=== PATIENT | male | born 1950 | race Caucasian/White ===

== ENCOUNTER 2024-12-04 12:46 | Outpatient (OUT) | payer OTHER, SELFPAY ==
--- OUTSIDE RECORDS SUMMARY | 2024-12-04 12:52 | XMS_ITS | Clinical Summary ---
Author Organization [facility] Address [address] [place] [address] Care Team Providers Care Support Associate Name Role Phone Unavailable Primary Care Provider Unavailabl e Allergies No known active allergies Medications allopurinol (Zyloprim) 100 mg tablet Take 200 mg by mouth in the morning. 2 Active amLODIPine (Norvasc) 10 mg tablet Take 10 mg by mouth in the morning and at bedtime. 2 Active atorvastatin (Lipitor) 40 mg tablet Take 40 mg by mouth in the morning. 2 Active benazepril (Lotensin) 20 mg tablet Take 20 mg by mouth in the morning and at bedtime. 2 Active carvedilol (Coreg) 25 mg tablet Take 25 mg by mouth in the morning and at bedtime. 3 Active colchicine 0.6 mg tablet Take by mouth in the morning. 2 Active isosorbide mononitrate ER (Imdur) 60 mg 24 hr tablet Take 120 mg by mouth in the morning and at bedtime. 3 Active pantoprazole (ProtoNix) 40 mg EC tablet Take 40 mg by mouth in the morning. 3 Active spironolactone (Aldactone) 25 mg tablet Take 25 mg by mouth in the morning. 2 Active potassium citrate CR (Urocit-K-10) 10 mEq ER tabletIndication s:Medication management Take 1 tablet (10 mEq) by mouth with breakfast, with lunch, and with evening meal. Do not crush, chew, or split. 1 tablet 3 Active Additional Information Patient taking differently:10 mEq oral2 times daily, Do not crush, chew, or split., Reported on 05/22/2022 sertraline (Zoloft) 50 mg tabletIndication s:Medication management Take 1 tablet (50 mg) by mouth in the morning. 1 tablet Active traZODone (Desyrel) 25 MG split tablet Take 25 mg by mouth at bedtime. Active aspirin 81 mg EC tablet Take 81 mg by mouth in the evening. Active docusate sodium (Colace) 100 mg capsule Take 100 mg by mouth in the morning. Active folic acid/multivit-mi n/lutein (CENTRUM SILVER ORAL) Take by mouth 1 (one) time each day. Active methylcellulose (FIBER THERAPY LAXATIVE ORAL) Take 2 tablets by mouth in the morning. Active famotidine (Pepcid) 40 mg tablet Take 40 mg by mouth in the evening. Active Lactobacillus rhamnosus GG (Culturelle) 15 billion cell capsule, sprinkle capsule Take 1 capsule by mouth in the morning. Active Active Problems Problem Noted Date Diagnosed Date Obesity with body mass index 30 or greater 06/06 Benign prostatic hyperplasia with urinary obstru ction 06/06/2022 Bradycardia 06/06/2022 Left lumbar radiculopathy 06/06/2022 Chronic GERD 06/06/2022 Chronic obstructive pulmonary disease 06/06/2022 Chronic venous insufficiency 06/06/2022 Hypertension 06/06/2022 Idiopathic gout 06/06/2022 On statin therapy 06/06/2022 Mixed dyslipidemia 06/06/2022 Obstructive sleep apnea syndrome 06/06/2022 Overview (06/06/2022): uses cpap uses cpap Uses CPAP nightly Personal history of prostate cancer 06/06/2022 PTSD (post-traumatic stress disorder) 06/06/2022 Radiation cystitis 06/06/2022 Recurrent major depressive disorder, in full rem ission 06/06/2022 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 04/25/2022 Overview (06/06/2022): Added automatically from request for surgery [id number] 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 0 04/25/2022 Overview (04/25/2022): Added automatically from request for surgery [id number] Iliac artery stenosis, bilateral 04/25/2022 Overview (04/25/2022): Added automatically from request for surgery [id number] Encounter for pre-operative examination 04/25/19 Overview (04/25/2022): Added automatically from request for surgery [id number] Social History Tobacco Use Types Packs/Day Years Used Date Smoking Tobacco: Former Cigarettes Q uit: 03/2013 Smokeless Tobacco: Never Tobacco Cessation:Counseling Given: Not Answered Alcohol Use Standard Drinks/Week Comments Not Currently 0 (1 standard drink = 0.6 oz pur e alcohol) Humiliation, Afraid, Rape, and Kick questionnair e Answer Date Recorded Within the last year, have y ou been afraid of your partner or ex-partner? No 06/06/2022 Emotionally Abused Not on file 06/06/2022 Physically Abused Not on file 06/06/2022 Sexually Abused Not on file 06/06/2022 Overall Financial Resource Strain (CARDIA) Answe r Date Recorded How hard is it for you to pa y for the very basics like food, housing, medical care, and heating? Not very hard 06/06/2022 [place] Safety & Environment Answer Date Rec orded Fear of Current or Ex-Partner Not on file Emotionally Abused Not on file 06/10/2023 Physically Abused Not on file 06/10/2023 Sexually Abused Not on file 06/10/2023 Physically or Sexually Abused Not on file Transportation Answer Date Recorded In the past 12 months, has l ack of transportation kept you from medical appointments or from getting medications? No 06/06/2022 Lack of Transportation (Non-Medical) Not on file 06/06/2022 Housing Stability Vital Sign Answer Shahbaz e Recorded Unable to Pay for Housing in the Last Year Not o n file 06/06/2022 Number of Places Lived in the Last Year Not on f ile 06/06/2022 In the last 12 months, was t here a time when you did not have a steady place to sleep or slept in a jail (including now)? No 06/06/2022 Hunger Vital Sign Answer Date Recorded Within the past 12 months, y ou worried that your food would run out before you got the money to buy more. Never true 03/07/20 23 Ran Out of Food in the Last Year Not on file 06/06/2022 Sex and Gender Information Value Date Recorded Sex Assigned at Not on file Legal Sex Male 2:25 PM EST Gender Identity Not on file Sexual Orientation Not on file Last Filed Vital Signs Vital Sign Reading Time Taken Comments Blood Pressure 161/69 06/08/2022 5:05 PM EST Pulse 78 06/08/2022 5:05 PM EST Temperature 36.9 C (98.5 F) 06/08/2022 4:00 PM EST Respiratory Rate 26 06/08/2022 5:05 PM EST Oxygen Saturation 93% 06/08/2022 5:05 PM EST Inhaled Oxygen Concentration - - Weight 93.9 kg (207 lb 0.2 oz) 06/07/2022 2:00 A M EST Height 167.6 cm (5' 6 ) 06/06/2022 8:04 AM EST Body Mass Index 33.41 06/06/2022 8:04 AM EST Plan of Treatment Health Maintenance Due Date Last Done Comments CT Colonography 1949 Colonoscopy 1949 Colorectal Cancer Screening 1949 FIT-DNA 1949 FIT 1949 FOBT 1949 Medicare Annual Wellness (AWV) 1949 Sigmoidoscopy 1949 Depression Screening 1961 Zoster Vaccines (1 of 2) 1999 019, 05/31/2018, 04/02/2010, Additional history exists Fall Risk Screening 2014 Adult Tetanus 05/22/2024 05/22/2014 COVID-19 Vaccine ( season) 2024 01/20/2022, 01/19/2022, 07/15/2021, Additional history exists Influenza Vaccine (#1) 2024 3, 01/16/2022, 12/13/2020, Additional history exists Pneumococcal Vaccine: 50+ Years Completed 04/15/2021, 03/16/2015, 01/31/2015, Additional history exists HIB Vaccines Aged Out No longer eligi ble based on patient's age to complete this topic HPV Vaccines Aged Out No longer eligi ble based on patient's age to complete this topic IPV Vaccines Aged Out No longer eligi ble based on patient's age to complete this topic Meningococcal B Vaccine Aged Out No l onger eligible based on patient's age to complete this topic Meningococcal Vaccine Aged Out No carlos enrique loraine eligible based on patient's age to complete this topic Rotavirus Vaccines Aged Out No longer eligible based on patient's age to complete this topic Medical Devices Implanted Type Area Timber Hand Device Identifier Shelf Expiration Date Model / Serial / Lot Membrane,Maya card,8x14cm - [id number] Implanted:Qty : 1 on 06/06/2022 by Phi Barrett MD at [facility] Collagen N/A: Arterial [employer] [id number] 12/27/2026 [id number] / / [id number]- [id number] Patch,Vascuga rd,[id number] - [id number] Implanted:Qty : 1 on 06/06/2022 by Phi Barrett MD at [facility] Graft N/A: Arterial [employer] 2023 [id number] / / Stent,Viabahn ,Vbx,7fr,8mmx 29mm - [id number] - [id number] Implanted:Qty : 1 on 06/06/2022 by Phi Barrett MD at [facility] Stent N/A: Arterial W L GORE 07/29/2024 [id number] / [id number] / [employer] Vascular And Biliary Stent System Implanted:Qty : 1 on 06/06/2022 by Phi Barrett MD at [facility] Stent N/A: Arterial Other 02/17/2025 [id number] / / [id number] [employer] Vascular And Biliary Stent System Implanted:Qty : 1 on 06/06/2022 by Phi Barrett MD at [facility] Stent N/A: Arterial Other [id number] 01/27/2025 [id number] / / [id number] Insurance [employer] MEDICARE ADVANTAGE Advance Directives Documents on File Type Date Recorded 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
--- OUTSIDE RECORDS SUMMARY | 2024-12-04 12:53 | XMS_ITS | Clinical Summary ---
Author Organization [facility] Address [address] [place] [address] Care Team Providers Care Quality Intern Name Role Phone Latrell Erwin MD Primary Care Provider [phone] Medications carveDILOL 25 MG tablet Take 1 tablet by mouth 2 times daily with meals. Active benazepril 10 MG tablet Take 2 tablets by mouth daily. Active potassium citrate 10 MEQ (1080 MG) Tab CR Take 1 tablet by mouth 2 times daily. Active Isosorbide mononitrate 60 MG Tab SR 24 HR tablet XL Take 2 tablets by mouth 2 times daily. Active amLODIPine 5 MG tablet Take 2 tablets by mouth daily. Active Spironolactone 25 MG tablet Take 1 tablet by mouth daily. Active Pantoprazole [address] tablet DR Take 1 tablet by mouth daily. Active Atorvastatin 40 MG tablet Take 1 tablet by mouth daily. Active Aspirin [address] tablet Take 1 tablet by mouth daily. Active faMOTIdine 20 MG tablet Take 2 tablets by mouth every evening at 6 PM. Active Inulin (FIBER CHOICE PO) Take 3 tablets by mouth daily. Active Sertraline 50 MG tablet Take 1 tablet by mouth daily. Active Lactobacillus Rhamnosus, GG, (CULTURELLE PO) Take 1 tablet by mouth daily. Active Multiple Vitamins-Mineral s (CENTRUM SILVER PO) Take 1 tablet by mouth daily. Active Colchicine 0.6 MG tablet Take 1 tablet by mouth as needed. Active Allopurinol 100 MG tablet Take 1 tablet by mouth as needed (2 tabs daily as needed). Active traZODone 50 MG tablet Take 0.5 tablets by mouth At bedtime. Active Clopidogrel 75 MG tablet Take 1 tablet by mouth daily. Active Dicyclomine 10 MG capsule Take 2 capsules by mouth 3 times daily (take before meals). Active Diclofenac-Na Hyaluron-Niacin 3-2-4 % Gel Apply topically 2 times daily. Active Ondansetron 4 MG Tab Dispersible tablet Take 1 tablet by mouth every [address] on tongue 15 tablet Active Social History Tobacco Use Types Packs/Day Years Used Date Smoking Tobacco: Former Cigarettes Smokeless Tobacco: Never Tobacco Cessation:Counseling Given: Not Answered Alcohol Use Standard Drinks/Week Comments Never 0 (1 standard drink = 0.6 oz pur e alcohol) Sex and Gender Information Value Date Recorded Sex Assigned at Not on file Legal Sex Male 10:26 AM EDT Gender Identity Not on file Sexual Orientation Not on file Last Filed Vital Signs Vital Sign Reading Time Taken Comments Blood Pressure 164/75 07/24/2023 1:44 PM EDT Pulse 59 07/24/2023 1:44 PM EDT Temperature 36.4 C (97.6 F) 07/24/2023 10:35 AM EDT Respiratory Rate 16 07/24/2023 1:44 PM EDT Oxygen Saturation 99% 07/24/2023 1:44 PM EDT Inhaled Oxygen Concentration - - Weight 96.2 kg (212 lb) 07/24/2023 10:36 AM EDT Height 167.6 cm (5' 6 ) 07/24/2023 10:36 AM EDT Body Mass Index 34.22 07/24/2023 10:36 AM EDT Plan of Treatment Health Maintenance Due Date Last Done Comments HEPATITIS C VIRUS SCREENING 1949 LIPID SCREENING 1989 COLORECTAL CANCER SCREENING DISCUSSION 1994 ABDOMINAL AORTIC ANEURYSM HIGH RISK SCREEN 2014 ZOSTER (SHINGLES) VACCINE (2 of 3) 09/27/2018 08/02/2018, 05/31/2018, 02/20/2006 COVID-19 VACCINE ( season) 2023 01/03/2023, 07/15/2021, 01/15/2021, Additional history exists TETANUS 05/22/2024 05/22/2014 POTASSIUM 07/23/2024 07/24/2023 INFLUENZA VACCINE (#1) 2024 , 12/29/2022, 01/16/2022, Additional history exists TDAP (ADULT) Completed 05/22/2014 PNEUMOCOCCAL VACCINE SERIES Completed 03/16/2015, 0 06/30/2014 RSV VACCINE Completed 12/22/2022 HEP B VACCINE Aged Out No longer jewel biswas based on patient's age to complete this topic Procedures Procedure Name Priority Date/Time Associated Diagnosis Comments COMPREHENSIVE METABOLIC PANEL STAT 07/24/2023 11:31 AM EDT from Last 3 Months or Most Recently Relevant to Health Maintenance Results * (ABNORMAL) COMPREHENSIVE METABOLIC PANEL (07/24/2023 11:31 AM EDT) Glucose 119(H) 70 - 100 MG/DL [address] Comment: NORMAL <100 mg/dL PREDIABETES 101-126 mg/dL DIABETES 126 mg/dL or higher BUN 26(H) 7 - 20 MG/DL [address] CREATININE SERUM 1.84(H) 0.70 - 1.20 MG/DL [address] SODIUM 138 137 - 145 MMOL/L [address] Potassium 4.8 3.5 - 5.1 MMOL/L [address] CHLORIDE 105 98 - 107 MMOL/L [address] Comment:Please note: Triglyc eride levels of 600mg/dL or higher may positively bias chloride results by approximately 2.1 mmol CALCIUM 10.1 8.4 - 10.2 MG/DL [address] PROTEIN, TOTAL 7.8 6.3 - 8.2 GM/DL [address] Albumin 4.8 3.5 - 5.0 G/dl [address] BILIRUBIN, TOTAL 0.7 0.2 - 1.3 MG/DL [address] AST 50 17 - 59 IU/L [address] ALKALINE PHOSPHATASE 136(H) 38 - 126 IU/L [address] CARBON DIOXIDE (CO2) 26 22 - 30 MMOL/L [address] A/G Ratio 1.[address] ALT 68(H) <50 IU/L [address] ESTIMATED GFR, NON AMER 38 ml/min/1. 73sq.m [address] ESTIMATED GFR, 46 ml/min/1. 73sq[address]m [address] GFR COMMENT Average GFR for 70+ years old = 75. [address] Comment: Chronic Kidney disease, GFR = <60. Kidney failure, GFR = <15. The GFR estimate is not adjusted for extreme body surface area or acute process, nor has it been validated for women or ethnic groups other than and . Blood 07/24/2023 11:3 1 AM EDT 07/24/2023 11:33 AM EDT Celso Harmon PA-C CHEMISTRY ORDERABLES Final Result [address] [id number] from Last 3 Months or Most Recently Relevant to Health Maintenance Insurance Medicare A[employer]na [facility] Office Of Community Care [facility] Office Of Community Care [place] [facility] [address] [id number] Care Teams Quality Intern Relationship Specialty Start Date End Date Latrell Erwin MD PCP - General Family Medicine 07/24/23
--- OUTSIDE RECORDS SUMMARY | 2024-12-04 12:53 | XMS_ITS | Clinical Summary ---
Author Organization [facility] Address [address] [place] [id number] Phone Care Team Providers Care Manager Research And Development Name Role Phone Unavailable Primary Care Provider Unavailabl e Social History Tobacco Use Types Packs/Day Years Used Date Smoking Tobacco: Never Assessed Sex and Gender Information Value Date Recorded Sex Assigned at Not on file Legal Sex Male 12:06 AM EST Gender Identity Not on file Sexual Orientation Not on file Plan of Treatment Not on file
--- OUTSIDE RECORDS SUMMARY | 2024-12-04 12:53 | XMS_ITS | Clinical Summary ---
Author Organization [facility] Address [address], [address] [place] [address] Care Team Providers Care Vibration Technician Name Role Phone Latrell Erwin MD Primary Care Provider [phone] Allergies No known active allergies Medications metoprolol succinate (TOPROL XL) 200 MG extended release tablet Take 200 mg by mouth 2 times daily Active benazepril (LOTENSIN) 20 MG tablet Take 20 mg by mouth 2 times daily Active vitamin B-12 (CYANOCOBALAMIN ) 1000 MCG tablet Take 1,000 mcg by mouth 2 times daily Active potassium citrate (UROCIT-K) 10 MEQ (1080 MG) extended release tablet Take 10 mEq by mouth 2 times daily Active budesonide-form oterol (SYMBICORT) 160-4.5 MCG/ACT AERO Inhale 2 puffs into the lungs 2 times daily Active naproxen (NAPROSYN) 500 MG tablet Take 500 mg by mouth 2 times daily (with meals) Active amLODIPine (NORVASC) 10 MG tablet Take 10 mg by mouth daily Active omeprazole (PRILOSEC) 40 MG delayed release capsule Take 40 mg by mouth daily Active hydrochlorothia zide (HYDRODIURIL) 25 MG tablet Take 25 mg by mouth daily Active atorvastatin (LIPITOR) 20 MG tablet Take 20 mg by mouth every evening Active aspirin 81 MG tablet Take 81 mg by mouth every evening Active Dieterich-3 Fatty Acids (SB OMEGA-3 FISH OIL) 1000 MG CAPS Take 2 capsules by mouth Active polycarbophil (FIBERCON) 625 MG tablet Take 625 mg by mouth daily 2 tablets every morning Active docusate sodium (COLACE) 100 MG capsule Take 100 mg by mouth daily Active Ascorbic Acid (VITAMIN C CR) 500 MG TBCR Take 1 tablet by mouth daily Active vitamin E 400 UNIT capsule Take 400 Units by mouth daily Active Social History Tobacco Use Types Packs/Day Years Used Date Smoking Tobacco: Former Alcohol Use Standard Drinks/Week Comments No 0 (1 standard drink = 0.6 oz pur e alcohol) Sex and Gender Information Value Date Recorded Sex Assigned at Not on file Legal Sex Male 8:54 PM EDT Gender Identity Not on file Sexual Orientation Not on file Last Filed Vital Signs Vital Sign Reading Time Taken Comments Blood Pressure 151/77 01/06/2016 9:03 PM EDT Pulse 69 01/06/2016 9:03 PM EDT Temperature 36.7 C (98 F) 01/06/2016 9:03 PM EDT Respiratory Rate 22 01/06/2016 9:03 PM EDT Oxygen Saturation 93% 01/06/2016 9:03 PM EDT Inhaled Oxygen Concentration - - Weight 96.6 kg (213 lb) 01/06/2016 9:03 PM EDT Height 167.6 cm (5' 6 ) 01/06/2016 9:03 PM EDT Body Mass Index 34.38 01/06/2016 9:03 PM EDT Plan of Treatment Not on file Care Teams Vibration Technician Relationship Specialty Start Date End Date Latrell Erwin MD PCP - General 01/06/16
--- OUTSIDE RECORDS SUMMARY | 2024-12-04 12:53 | XMS_ITS | Clinical Summary ---
Author Organization [facility] Address [address] [place] [address] Care Team Providers Care Direct Support Professional Home Health Name Role Phone Unavailable Primary Care Provider Unavailabl e Medications cephalexin (Keflex) 500 MG capsuleIndicati ons:Presence of right artificial knee joint Take two caps evening prior to appointment, take two caps one hour prior to appointment 4 capsule 2 4 Active cephalexin (Keflex) 500 MG capsuleIndicati ons:Presence of right artificial knee joint Take two caps evening prior to appointment, take two caps one hour prior to appointment 4 capsule 2 5 Active cephalexin (Keflex) 500 MG capsuleIndicati ons:Presence of right artificial knee joint Take two caps evening prior to appointment, take two caps one hour prior to appointment 4 capsule 3 5 Active Encounters Date Type Department Care Team Description 12/03/2024 Telephone [facility] [address] [id number] Shoaib Barreto, Dental Appt Abx Request from Last 3 Months Social History Tobacco Use Types Packs/Day Years Used Date Smoking Tobacco: Never Assessed Sex and Gender Information Value Date Recorded Sex Assigned at Not on file Legal Sex Male 8:33 PM EDT Gender Identity Not on file Sexual Orientation Not on file Last Filed Vital Signs Vital Sign Reading Time Taken Comments Blood Pressure 132/75 04/26/2022 12:00 PM EST Pulse - - Temperature - - Respiratory Rate - - Oxygen Saturation - - Inhaled Oxygen Concentration - - Weight 94.3 kg (208 lb) 04/26/2022 12:00 PM EST Height 167.6 cm (5' 6 ) 04/26/2022 12:00 PM EST Body Mass Index 33.57 04/26/2022 12:00 PM EST Plan of Treatment Health Maintenance Due Date Last Done Comments CT Colonography 1949 Colonoscopy 1949 Colorectal Cancer Screening 1949 FIT-DNA 1949 FIT 1949 FOBT 1949 Sigmoidoscopy 1949 Influenza Vaccine (#1) 2024 , 12/29/2022, 01/16/2022, Additional history exists Pneumococcal Vaccine: 65+ Years Completed 04/15/2021, 01/31/2015, 04/02/2009, Additional history exists Insurance [employer] MEDICARE ADVANTAGE
--- OUTSIDE RECORDS SUMMARY | 2024-12-04 12:53 | XMS_ITS | Continuity of Care Document ---
Author Organization [facility] 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 Name Role Phone Phi Barrett Care Team Information Primary Care Md [phone] Latrell Erwni MD Care Team Information Rece iver [phone] Problems Active Problems Provider Date Essential hypertension Onset: Has influenza vaccination at hospital Onset: 06/20/2023 Family History Date Family Member(s) Observation Comments General Not Known - Adopted Social History Type Date Description Comments Sex Male ETOH Use Denies alcohol use Recreational Drug Use Denies Drug Use Tobacco Use Start: Unknown End: Unknown Patient is a former smoker Smoking Status Reviewed: 06/30/24 Patient is a former smoker Results Test Acquired Date Facility Test Result H/[place] .Ua 11/25/[address] [address] [phone] Ua Appearance CLEAR Ua Bilirubin NEGATIVE Ua Blood NEGATIVE Ua Color YELLOW Ua Glucose NEGATIVE Ua Ketones NEGATIVE Ua Leuko NEGATIVE Ua Nitrite NEGATIVE Ua PH Test Strip 6.0 Ua Protein NEGATIVE Ua Source CLEAN CATCH Ua Specific [place] 1.020 Ua Urobilinogen NEGATIVE .Urine Protein/Cre at. Random 11/25/[address] [address] [phone] .Urine Protein Random 12.7 .Urine Creatinine Random 160.4 .Urine Prot/Creat Ratio 7.90 .Renal Panel-lab [facility] 11/25/[address] [address] .Albumin 4.3 .Calcium 9.9 .Carbon Dioxide 25 .Chloride 106 .Phosphorus 2.9 .Potassium 4.8 .Sodium 138 .BUN 21 .GFR 41 High 20 .Creatinine-LC 1.7 .Renal Panel 06/16/[address] [address] .Albumin 4.3 .Calcium 9.9 .Carbon Dioxide 26 .Chloride 107 .Phosphorus 3.3 .Potassium 4.9 .Sodium 138 .BUN 28 .GFR 36 High 20 .Creatinine-LC 1.9 .Ua 06/16/[address] [address] [phone] Ua Appearance clear Ua Bilirubin - Ua Blood - Ua Color yellow Ua Glucose - Ua Ketones - Ua Leuko - Ua Nitrite - Ua PH Test Strip 5.5 Ua Protein - Ua Source clean catch Ua Specific [place] 1.023 Ua Urobilinogen - .Urine Protein/Cre at. Random 06/16/[address] [address] .Urine Protein Random 12.6 .Urine Creatinine Random 194.3 .Urine Prot/Creat Ratio 6.50 .Ipth 11/22/2023 [facility] (000)-000-000 0 .Ipth 50 .Immunofixa tion-Serum 11/22/2023 [facility] (000)-000-000 0 .Immunofixation- Serum NO MONOCLONALIT .Immunofixa tion-Urine 11/22/2023 [facility] (000)-000-000 0 .Immunofixation- Urine NO MONOCLONALIT .Hemoglobin Blood 11/22/2023 [facility] (000)-000-000 0 .Hemoglobin Blood 12.2 .Hematocrit 11/22/2023 [facility] (000)-000-000 0 .Hematocrit 36.1 .Complement C3 11/22/2023 [facility] (000)-000-000 0 .Complement C3 146 .Complement C4 11/22/2023 [facility] (000)-000-000 0 .Complement C4 30 .Urine Protein/Cre at. Random 11/22/2023 [facility] (000)-000-000 0 .Urine Protein Random 8.1 .Urine Creatinine Random 154.7 .Urine Prot/Creat Ratio 5.20 .Free Light Chains 11/22/2023 [facility] (000)-000-000 0 [place] Light Chains QN Ser 37.5 Lambda Light Chain QN Ser 27.5 .Urinalysis -Routine 11/22/2023 [facility] (000)-000-000 0 Ua Specific [place] 1.020 Ua PH Test Strip 5.0 Ua Color YELLOW Ua Appearance CLEAR Ua Protein - Ua Glucose - Ua Ketones - Ua Bilirubin - Ua Urobilinogen - Ua Nitrite - Ua Occult Blood - .Renal Panel 11/22/2023 [facility] (000)-000-000 0 .Albumin 4.2 .Calcium 9.5 .Carbon Dioxide 25 .Chloride 107 .Phosphorus 2.5 .Potassium 4.3 .Sodium 137 .BUN 24 .GFR 42 .Creatinine-LC 1.7 .Magnesium 11/22/2023 [facility] (000)-000-000 0 .Magnesium 1.8 .CMP 05/29/2023 [facility] (000)-000-000 0 .Albumin 4.0 .Alt 20 .Calcium 10.3 .Carbon Dioxide 26 .Chloride 107 .Creatinine-LC 1.8 .Glucose Serum 100 .Alkaline Phos 130 .Potassium 4.8 .Protein-Total 7.2 .Sodium 139 .Ast 23 .BUN 24 .GFR 39 .BMP W/Egfr-LC 06/29/2022 [facility] (000)-000-000 0 .Sodium 137 .Potassium 4.1 .Chloride 108 .Carbon Dioxide 24 .Calcium 9.1 .GFR 46 .Creatinine-LC 1.5 .BUN 25 .BMP W/Egfr-LC 02/27/2022 [facility] (000)-000-000 0 .Sodium 139 .Potassium 4.1 .Chloride 107 .Carbon Dioxide 24 .Calcium 9.6 .GFR 54 .Creatinine-LC 1.3 .BUN 29 .BMP W/Egfr-LC 10/12/2021 [facility] (000)-000-000 0 .Sodium 138 .Potassium 3.6 .Chloride 104 .Carbon Dioxide 27 .Calcium 9.7 .GFR 54 .Creatinine-LC 1.3 .BUN 22 Encounters Type Date Location Provider Dx Diagnosis Office Visit 06/30/2024 11:00a [facility] Wanda Erwin NP I13.10 Hyp hrt & chr kdny dis w/o hrt fail, w stg 1-4/unsp chr kdny N18.32 Chronic kidney disea se, stage 3b N20.0 [facility] Office Visit 12/31/2023 10:00a [facility] Edmund Sinha MD I13.10 Hyp hrt & chr kdny dis w/o hrt fail, w stg 1-4/unsp chr kdny N18.32 Chronic kidney disea se, stage 3b N20.0 [facility] Office Visit 08/16/2023 10:00a [facility] Edmund Sinha MD I13.10 Hyp hrt & chr kdny dis w/o hrt fail, w stg 1-4/unsp chr kdny N18.32 Chronic kidney disea se, stage 3b N20.0 [facility] Assessments Date Code Description Provider 06/30/2024 I13.10 Hypertensive hea rt and chronic kidney disease without heart failure, with stage 1 through stage 4 chronic kidney disease, or unspecified chronic kidney disease Wanda Erwin NP 06/30/2024 N18.32 Chronic kidney disease, dinorah Erwin, EMERALD 06/30/2024 N20.0 [facility] Wanda low, EMERALD 12/31/2023 I13.10 Hypertensive hea rt and chronic kidney disease without heart failure, with stage 1 through stage 4 chronic kidney disease, or unspecified chronic kidney disease Edmund Sinha MD 12/31/2023 N18.32 Chronic kidney disease, dinorah Sinha MD 12/31/2023 N20.0 [facility] Edmund jasso MD 08/16/2023 I13.10 Hypertensive hea rt and chronic kidney disease without heart failure, with stage 1 through stage 4 chronic kidney disease, or unspecified chronic kidney disease Edmund Sinha MD 08/16/2023 N18.32 Chronic kidney disease, dinorah Sinha MD 08/16/2023 N20.0 [facility] Edmund jasso MD
[2024-12-04 13:10] LABS: Glucose Urine UA NEGATIVE (NEGATIVE)
== END 2024-12-04 12:47 | disposition home or self-care (01) ==
PROVIDERS: PCP Family Medicine; Visit Provider Chiropractor
DX: N18.9 Chronic kidney disease, unspecified (principal)
CPT/HCPCS: 81003